=== PATIENT | male | born 1960 | race Caucasian/White ===

== ENCOUNTER 2019-08-27 14:38 | Emergency (ER) | payer SELFPAY ==
[~2019-08-27] VITALS: Ht 144.8 cm; Wt 61.2 kg
[2019-08-27 14:44] VITALS: BP 142/106
--- NOTE | 2019-08-27 14:50 | NUR ---
PT AMBULATED TO BED 10
[2019-08-27] MEDS ORDERED: LIDOCAINE 2% 1000 MG/50 ML VIAL INJ ONE (14:55)
--- NOTE | 2019-08-27 15:22 | NUR ---
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 BLEEDING CONTROLLED. PATIENT STATES PAIN 01/09. DENIES N/V/D; SKIN IS PINK/WARM/DRY; AAOX4 WITH EVEN AND STEADY GAIT; PT DENIES ANY FEVER, CP, SOB, OR COUGH AT THIS TIME; VSS; PATIENT POSITIONED FOR COMFORT; HOB ELEVATED; BEDRAILS UP X1; BED DOWN. UNKNOWN LAST TDAP. HX- NONE RX- MULTIVITAMIN NKA
[2019-08-27] MEDS ORDERED: BACITRACIN OINT 500 UNITS/GM PKT TP ONE (15:35)
[2019-08-27 15:47] VITALS: BP 142/106
== END 2019-08-27 15:46 | disposition home or self-care (01) ==
LOC: MED 14:38
DX: S61.412A Laceration without foreign body of left hand, initial encounter (principal); W31.2XXA Contact with powered woodworking and forming machines, initial encounter; Y92.096 Garden or yard of other non-institutional residence as the place of occurrence of the external cause; Y93.89 Activity, other specified; Y99.8 Other external cause status
CPT/HCPCS: 12002; 90471; 90715; 99283; J2001

== ENCOUNTER 2019-08-29 15:45 | Emergency (ER) | payer SELFPAY ==
[~2019-08-29] VITALS: Ht 172.7 cm; Wt 61.2 kg
--- NOTE | 2019-08-29 16:10 | NUR ---
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 L HAND WITH 3CM LAC REPAIRED WITH SUTURES, WELL APPROXIMATED, NO REDNESS, NO DRAINAGE, WITH MILD SWELLING, +CMS. DENIES FEVER/CHILLS. PT AWAKE AND ALERT, SKIN NORMAL COLOR WARM AND DRY, RR EVEN AND UNLABORED. DENIES MED HX OR RX.
--- NOTE | 2019-08-29 17:24 | NUR ---
Patient discharged with v/s stable. Written and verbal after care instructions given and explained. Patient verbalized understanding. Carried with steady gait. All questions addressed prior to discharge. Advised to follow up with PMD.
== END 2019-08-29 17:24 | disposition home or self-care (01) ==
LOC: MED 15:45
DX: S61.412D Laceration without foreign body of left hand, subsequent encounter (principal); X58.XXXD Exposure to other specified factors, subsequent encounter
CPT/HCPCS: 99281

== ENCOUNTER 2019-09-05 15:43 | Emergency (ER) | payer SELFPAY ==
[~2019-09-05] VITALS: Ht 172.7 cm; Wt 61.2 kg
[2019-09-05 15:47] VITALS: BP 130/81
--- NOTE | 2019-09-05 16:15 | NUR ---
PT TO ED FOR SUTURE REMOVAL TO L HAND. SUTURES NOTED. MILD SWELLING NOTED. NO D/C. DENIES PAIN. IN BED FOR MD MENG.
[2019-09-05 16:27] VITALS: BP 130/81
--- NOTE | 2019-09-05 16:28 | NUR ---
Patient discharged with v/s stable. Written and verbal after care instructions given and explained. Patient verbalized understanding. Ambulatory with steady gait. All questions addressed prior to discharge. Advised to follow up with PMD.
== END 2019-09-05 16:25 | disposition home or self-care (01) ==
LOC: MED 15:43
DX: S61.412D Laceration without foreign body of left hand, subsequent encounter (principal); X58.XXXD Exposure to other specified factors, subsequent encounter
CPT/HCPCS: 99281

== ENCOUNTER 2019-09-07 15:47 | Emergency (ER) | payer SELFPAY ==
[~2019-09-07] VITALS: Ht 170.2 cm; Wt 61.7 kg
[2019-09-07 15:59] VITALS: BP 151/70
--- NOTE | 2019-09-07 16:02 | NUR ---
58 Y/O M PRESENTS TO ER FOR STITCHES REMOVAL TO LEFT HAND. PAIN LEVEL 0/10. DENIES FEVER, CHILLS, OR DRAINAGE. ALLERGIES: NKA. MED HX: NONE. PA IN TRIAGE EVALUATING PT.
--- NOTE | 2019-09-07 16:05 | NUR ---
PA REMOVED STITCHES FROM LEFT HAND. TOLERATED WELL.
[2019-09-07 16:07] VITALS: BP 151/70
--- NOTE | 2019-09-07 16:07 | NUR ---
Patient discharged with v/s stable. Pt encouraged to keep area clean and dry and wash area thoroughly. Written and verbal after care instructions given and explained. Patient verbalized understanding. Ambulatory with steady gait. All questions addressed prior to discharge. Advised to follow up with PMD.
== END 2019-09-07 16:07 | disposition home or self-care (01) ==
LOC: MED 15:47
DX: S61.412D Laceration without foreign body of left hand, subsequent encounter (principal); Z48.02 Encounter for removal of sutures
CPT/HCPCS: 99281